=== PATIENT | female | born 1955 | race Caucasian/White ===

== ENCOUNTER → 2018-06-30 | Outpatient (CLI) | payer BC, OTHER ==
--- NOTE | ~2018-06-30 | 2DMMODE ---
[facility] [place] [address] 2 D/M-MODE ECHOCARDIOGRAM Name: ARJAT REID Room #: REG [facility]#: [id number] Admission: 06/30/18 Attend Phys: Ari Rivera Discharge: Date of : 57 Date of Service: 06/30/18 1426 Report #: [id number] THIS REPORT FOR: //name// APPROVED REPORT Study performed: 06/30/2018 13:57:55 EXAM: Comprehensive 2D, Doppler, and color-flow Echocardiogram Patient Location: Out-Patient Status: routine BSA: 2.04 HR: 78 bpm BP: 130/80 mmHg Rhythm: NSR Other Information Study Quality: Good Indications Palpitations, hypertension. 2D Dimensions RVDd: 38.20 mm IVSd: 9.99 (7-11mm) LVOT Diam: 21.02 (18-24mm) LVDd: 48.14 mm PWd: 9.42 (7-11mm) Ascending Ao: 34.24 (22-36mm) LVDs: 31.51 (25-40mm) Aortic Root: 32.59 mm Volumes Left Atrial Volume (Systole) Single Plane 4CH: 37.37 mL Single Plane 2CH: 65.72 mL LA ESV Index: 26.00 mL/m2 Aortic Valve AoV Peak [place].: 1.63 m/s AO Peak Gr.: 10.61 mmHg LVOT Max P.32 mmHg LVOT Max V: 1.15 m/s MOE Vmax: 2.46 cm2 AI Vmax: 4.75 m/s AI [place]: 3.63 m/s2 AI PHT: 379.76 ms Mitral Valve [facility] [address] [place] [address] 2 D/M-MODE ECHOCARDIOGRAM Name: JEANETTERAJAT MERLOS Room #: [facility]#: [id number] Admission: 06/30/18 Attend Phys: Ari Rivera Discharge: Date of : 57 Date of Service: 06/30/18 1426 Report #: [id number] E/A Ratio: 0.9 MV Decel. Time: 244.81 ms MV E Max [place].: 0.87 m/s MV A [place].: 0.98 m/s MV PHT: 70.99 ms IVRT: 69.20 ms Pulmonary Valve PV Peak [place].: 0.85 m/s PV Peak Gr.: 2.86 mmHg Pulmonary Vein P Vein S: 0.74 m/s P Vein A: 0.45 m/s P Vein D: 0.44 m/s P Vein A Dur.: 100.3 msec P Vein S/D Ratio: 1.68 Tricuspid Valve RAP Estimate: 5.00 mmHg Left Ventricle The left ventricle is normal size. There is normal LV segmental wall motion. There is normal left ventricular wall thickness. Left ventricular systolic function is normal. LVEF is 60-65%. Mild diastolic dysfunction is present (impaired relaxation pattern). Right Ventricle The right ventricle is normal size. The right ventricular systolic function is normal. Atria The left atrium size is normal. The right atrium size is normal. Aortic Valve The aortic valve is normal in structure. Mild aortic regurgitation. There is no aortic valvular stenosis. Mitral Valve The mitral valve is normal in structure. Mild mitral regurgitation. Tricuspid Valve The tricuspid valve is normal in structure. Trace tricuspid regurgitation. Unable to assess PA pressure. Pulmonic Valve [facility] [address] [place] [address] 2 D/M-MODE ECHOCARDIOGRAM Name: RAJAT REID Room #: REG [facility]#: [id number] Admission: 06/30/18 Attend Phys: Ari Rivera Discharge: Date of : 57 Date of Service: 06/30/18 1426 Report #: [id number] The pulmonary valve is normal in structure. Mild pulmonic regurgitation. Great Vessels The aortic root is normal in size. The ascending aorta is normal in size. IVC is normal in size and collapses >50% with inspiration. Pericardium There is no pericardial effusion. <Conclusion> The left ventricle is normal size. There is normal left ventricular wall thickness. Left ventricular systolic function is normal. Mild diastolic dysfunction is present (impaired relaxation pattern). The right ventricle is normal size. The left atrium size is normal. Mild aortic regurgitation. Mild mitral regurgitation. Trace tricuspid regurgitation. <ELECTRONICALLY SIGNED> By: Isaiah Patrick MD 06/30/18 1426 [id number] Isaiah Patrick MD /INF
== END ==
LOC: CV 11:38
DX: I08.0 Rheumatic disorders of both mitral and aortic valves (principal); I10 Essential (primary) hypertension